=== PATIENT | female | born 1950 | race Caucasian/White ===

== ENCOUNTER → 2017-06-11 | Outpatient (CLI) | END | disposition home or self-care (01) ==

== ENCOUNTER 2017-11-11 14:10 | Emergency (ER) | END 2017-11-11 15:29 | disposition home or self-care (01) ==

== ENCOUNTER 2018-08-23 13:50 | Emergency (ER) | payer OTHER ==
[~2018-08-23] VITALS: Ht 152.4 cm; Wt 56.5 kg
[~2018-08-23 13:50] MED LIST: BEN50 PO; CETI10CA PO
[2018-08-23 14:11] VITALS: BP 132/62; PULSE 65; RESP 16; Ht 152.4 cm; Wt 56.5 kg
[2018-08-23] MEDS ORDERED: ACET500C5 PO (16:08)
--- NOTE | 2018-08-23 16:17 | ERD ---
ER Documentation Chief Complaint Chief Complaint painful wart on lt hand x 1 month HPI Patient is a 68-year-old female with a history of hyperlipidemia presents the ER for concerns of a painful wart on her left hand for the last 3 months. Patient states the affected area is tender to palpation. Patient reports using [id number] medications with minimal alleviation of symptoms. Patient has no fevers or chills. Patient denies any falls or trauma. Patient is right-hand dominant. ROS All systems reviewed and are negative except as per history of present illness. Medications Home Meds Active Scripts Acetaminophen* (Tylophen*) 500 Mg Capsule, 1 CAP PO Q6H PRN for PAIN AND OR ELEVATED TEMP, #20 CAP Prov:CHARMAINE PINA PA-C 08/23/18 Diphenhydramine Hcl* (Benadryl*) 50 Mg Cap, 50 MG PO Q6H PRN for ITCHING/RASH, #30 CAP Prov:SANTOS CABALLERO. HYGIENE COORDINATOR 11/11/17 Cetirizine Hcl* (Zyrtec*) 10 Mg Capsule, 10 MG PO DAILY, #30 TAB.CHEW Prov:SANTOS CABALLERO. HYGIENE COORDINATOR 11/11/17 Allergies Allergies: Coded Allergies: ibuprofen (Verified Allergy, Unknown, 07/26/14) PMhx/Soc History of Surgery: No Anesthesia Reaction: No Hx Neurological Disorder: No Hx Respiratory Disorders: No Hx Cardiac Disorders: No Hx Psychiatric Problems: No Hx Miscellaneous Medical Probl: No Hx Alcohol Use: No Hx Substance Use: No Hx Tobacco Use: No FmHx Family History: No diabetes Physical Exam Vitals Vital Signs Date Temp Pulse Resp B/P (MAP) Pulse Ox O2 O2 Flow FiO2 Time Delivery Rate 08/23/18 98.0 65 16 132/62 99 14:11 (85) Physical Exam GENERAL: Well-developed, well-nourished male. Appears in no acute distress. HEAD: Normocephalic, atraumatic. EYES: Pupils are equally reactive bilaterally. EOMs grossly intact. No conjunctival erythema. NECK: Supple. No meningismus. Normal range of motion of the neck. LUNG: Clear to auscultation bilaterally. No rhonchi, wheezing, rales or coarse breath sounds. HEART: Regular rate and rhythm. No murmurs, rubs or gallops. EXTREMITIES: Equal pulses bilaterally. No peripheral clubbing, cyanosis or edema. No unilateral leg swelling. NEUROLOGIC: Alert and oriented. Moving all four extremities without any difficulty. Normal speech. Steady gait. SKIN: 1 cm round, circular, brown wart noted on the patient's thenar aspect of her left hand. No streaking or warmth. No bleeding or discharge. Procedures/MDM MEDICAL DECISION MAKING: This is a 68-year-old female presents the ER for concerns of a wart on her left hand for the last 3 months. Vital signs were reviewed. Patient was afebrile. Patient was advised she will need to follow-up with a sales representative for removal. Referral information was provided.. PRESCRIPTIONS: Tylenol DISCHARGE: At this time, patient is stable for discharge and outpatient management. RICE therapy and ROM exercises were advised to avoid stiffness. I have instructed the patient to follow-up with his/her primary care physician in 1-2 days. I have discussed with the patient the possibility of needing to see an retail sales specialist for further workup and imaging if the pain persists. I have instructed the patient to promptly return to the ER for any new or worsening symptoms including increased pain, swelling, redness, warmth or fever. The patient and/or family expressed understanding of and agreement with this plan. All questions were answered. Home care instructions were provided. Disclaimer: Inadvertent spelling and grammatical errors are likely due to EHR/dictation software use and do not reflect on the overall quality of patient care. Also, please note that the electronic time recorded on this note does not necessarily reflect the actual time of the patient encounter. Departure Diagnosis: Primary Impression: Wart Viral wart type: unspecified viral wart Qualified Codes: B07.9 - Viral wart, unspecified Condition: Fair Patient Instructions: What Are Warts? Referrals: JOSÉ LUIS POLLOCK MD,GEOVANNA ESPITIA,MARI SAENZ,JOANNA VALENCIA,DANIELA CLIFFORD,CRIS LORENZANA Additional Instructions: Ia doctor de dermatologia. Llame al doctor MAANA y erica melania NANCY PARA DENTRO DE 1-2 CASTILLO.Dgale a la secretaria que nosotros le instruimos hacer esta nancy.Avise o llame si roach condicin se empeora antes de la nancy. Regresa aqui si peor o no mejor. CHARMAINE PINA PA-C Aug 23, 2018 16:17
== END 2018-08-23 16:51 | disposition home or self-care (01) ==
LOC: FTE 13:50
DX: B07.9 Viral wart, unspecified (principal)
CPT/HCPCS: 99282